=== PATIENT | female | born 1990 | race Caucasian/White ===

== ENCOUNTER 2020-10-04 15:12 | Emergency (ER) | payer MEDICAID ==
[~2020-10-04] VITALS: Ht 167.6 cm; Wt 68.0 kg
[2020-10-04 15:14] VITALS: BP_SYST 158
--- NOTE | 2020-10-04 15:14 | NUR ---
Patient to ER bed 5 to gown for evaluation. Side rails up. Report given to JOAQUIM Childers.
[2020-10-04] MEDS ORDERED: OLANZapine 10 MG TAB.RAPDIS PO SCH (15:15)
--- NOTE | 2020-10-04 15:20 | NUR ---
PT ARRIVES VIA BLS W/ VAGUE SYMPTOMS OF FEELING FATIGUE ALONG W/ BODY ACHES. PT IS HOMELESS, LOOKS DESHEVALED. PT IS UNABLE TO STATE WHAT YEAR THIS IS
--- NOTE | 2020-10-04 15:30 | NUR ---
[facility] at bedside examining patient.
[2020-10-04] MEDS: HALOPERIDOL LACTATE 5 MG/ML VIAL IM ONE (15:41)
[2020-10-04] MEDS: MIDAZOLAM HCL 5 MG/5 ML VIAL IM ONE (15:43)
--- NOTE | 2020-10-04 15:45 | NUR ---
MEDICATED W/ HALDOL AND VERSED PER MD ORDER
[2020-10-04 16:22] LABS: BASOPHILS % (AUTO) 0.6 % (0.0-2.0); EOSINOPHILS % (AUTO) 0.8 % (0.0-4.0); HEMATOCRIT 37.3 % (36-48); LYMPHOCYTES # (AUTO) 1.3 K/uL (1.0-5.5); LYMPHOCYTES % (AUTO) 24.1 % (20.5-51.5); MEAN CORPUSCULAR HEMOGLOBIN 31 pg (27-31); MEAN CORPUSCULAR HGB CONC 35 % (32-36); MEAN CORPUSCULAR VOLUME 90 fL (79.0-98.0); MONOCYTES # (AUTO) 0.4 K/uL (0.0-1.0); MONOCYTES % (AUTO) 6.7 % (1.7-9.3); NEUTROPHILS # (AUTO) 3.7 K/uL (1.8-7.7); NEUTROPHILS % (AUTO) 67.8 % (40.0-70.0); PLATELET COUNT (AUTO) 332 K/uL (130-430); RED BLOOD CELL COUNT(AUTO) 4.15 MIL/uL (4.2-6.2); RED CELL DISTRIBUTION WIDTH 12.9 % (9.0-15.0); WHITE BLOOD COUNT (AUTO) 5.4 K/uL (4.8-10.8)
[2020-10-04 16:53] LABS: POTASSIUM 3.4 mmol/L (3.5-5.1); SODIUM SERUM 136 mmol/L (136-145)
[2020-10-04 16:54] LABS: ALANINE AMINOTRANSFERASE 16 U/L (12-78); ALBUMIN 3.1 g/dL (3.4-4.8); ANION GAP 8 (5-15); ASPARTATE AMINOTRANSFERASE 13 U/L (10-37); BILIRUBIN,DIRECT 0.1 mg/dL (0.0-0.3); CALCIUM 8.6 mg/dL (8.4-11.0); CHLORIDE 102 mmol/L (98-107); GFR AFRICAN AMERICAN 184 mL/min (>90); GLUCOSE 91 mg/dL (70-99); TOTAL BILIRUBIN 0.4 mg/dL (0.0-1.0); UREA NITROGEN, BLOOD 6 mg/dL (8-21)
[2020-10-04 17:09] LABS: LIPASE 61 U/L (73-393)
[2020-10-04 17:30] LABS: ACETAMINOPHEN < 1 ug/mL (1-30)
--- NOTE | 2020-10-04 17:52 | NUR ---
pt is sleeping in the [facility]
--- NOTE | 2020-10-04 18:04 | NUR ---
pt walked out of the ER, security called.
[2020-10-04 18:05] LABS: HCG,QUANTITATIVE 58684 mIU/ML (0-6)
[2020-10-04 18:13] VITALS: BP_SYST 108
[2020-10-04 18:23] LABS: BILIRUBIN,URINE NEGATIVE (NEGATIVE); BLOOD, URINE NEGATIVE (NEGATIVE); CLARITY/URINE CLEAR (CLEAR); COLOR,URINE YELLOW (YELLOW); GLUCOSE,URINE NEGATIVE (NEGATIVE); KETONES,URINE 2+ (NEGATIVE); LEUKOCYTE ESTERASE ,URINE NEGATIVE (NEGATIVE); NITRITE, URINE NEGATIVE (NEGATIVE); PROTEIN URINE NEGATIVE (NEGATIVE); UROBILINOGEN,URINE 0.2 (0.2-1.0)
[2020-10-04 18:44] LABS: BARBITURATE, URINE NEGATIVE (NEG <=200); BENZODIAZEPINE, URINE NEGATIVE (NEG <=150); CANNABINOID, URINE NEGATIVE (NEG <=50); COCAINE, URINE NEGATIVE (NEG <=150); METHAMPHETAMINES SCREEN,URINE POSITIVE (NEG <=500); OPIATE, URINE NEGATIVE (NEG <=100); PHENCYCLIDINE SCREEN,URINE NEGATIVE (NEG <=25); UR TRICYCLIC ANTIDEPRESSANTS NEGATIVE (NEG <=300); URINE AMPHETAMINE NEGATIVE (NEG <=500); URINE METHADONE NEGATIVE (NEG <=200); URINE OXYCODONE SCREEN NEGATIVE (NEG <=100); URINE PROPOXYPHENE SCREEN NEGATIVE (NEG <=300)
== END 2020-10-04 18:13 | disposition left against medical advice (07) ==
LOC: SED 15:12
DX: F23 Brief psychotic disorder (principal); F15.129 Other stimulant abuse with intoxication, unspecified; F32.9 Major depressive disorder, single episode, unspecified; Z32.01 Encounter for pregnancy test, result positive; Z79.899 Other long term (current) drug therapy
CPT/HCPCS: 36415; 71045; 80048; 80076; 80307; 81003; 82550; 83690; 83880; 84484; 84702; 85025; 93005; 96372; 99285; G0480; J1630; J2250; G0481